=== PATIENT | male | born 1960 | race Two or more races ===

== ENCOUNTER 2017-12-25 20:45 | Emergency (ER) | payer OTHER ==
[~2017-12-25] VITALS: Ht 177.8 cm; Wt 96.2 kg
[~2017-12-25 20:45] MED LIST: CLONAZEPAM0.5 MG PO; DIOVAN HCT 320/1 TA1; HYZAAR 100-121 UDTAB PO; LEVSIN/SL0.125 MG SL; NORVASC5 MG PO; PROTONIX40 MG PO; TOPROL XL50 MG PO; TUSSIONEX PENNKI5 ML PO; VALSARTAN-HCTZ1 EAC3 PO; ZITHROMAX TRI-500 MG PO; ZITHROMAX500 MG PO; ZOLOFT50 MG PO
[2017-12-25] MEDS ORDERED: NORVASC5 MG (21:04)
== END 2017-12-25 22:30 | disposition home or self-care (01) ==
LOC: ER 20:45
DX: T78.1XXA Other adverse food reactions, not elsewhere classified, initial encounter (principal); R06.02 Shortness of breath

== ENCOUNTER 2018-03-07 09:56 | Inpatient (IN) | payer OTHER ==
[~2018-03-07] VITALS: Ht 177.8 cm; Wt 97.5 kg
[~2018-03-07 09:56] MED LIST changes: +NORVASC5 MG
[2018-03-14] MEDS ORDERED: AMOX-CLAV 875-1 EACH PO (10:55)
[2018-03-14] MEDS ORDERED: DOCUSATE SODIU100 MG PO (10:55)
[2018-03-14] MEDS ORDERED: GABAPENTIN800 MG PO (10:55)
[2018-03-14] MEDS ORDERED: PERCOCET 5-3251 EACH PO (10:56)
[2018-03-14] MEDS ORDERED: CLONAZEPAM1 MG PO (10:56)
== END 2018-03-15 12:35 | disposition home or self-care (01) | DRG 460 ==
LOC: O/R 03-14 05:37 → SURH 03-14 10:00 → PED 03-14 11:16 → SURH 03-14 15:45 → PED 03-15 12:35
PROVIDERS: Orthopaedic Surgery Orthopaedic Surgery of the Spine
PROC: 00NY0ZZ Release Lumbar Spinal Cord, Open Approach (ICD-10-PCS; 2018-03-14)
PROC: 0ST40ZZ Resection of Lumbosacral Disc, Open Approach (ICD-10-PCS; 2018-03-14)
PROC: 07DS3ZZ Extraction of Vertebral Bone Marrow, Percutaneous Approach (ICD-10-PCS; 2018-03-14)
PROC: 0SG30AJ Fusion of Lumbosacral Joint with Interbody Fusion Device, Posterior Approach, Anterior Column, Open Approach (ICD-10-PCS; principal; 2018-03-14 15:45)
DX: M47.27 Other spondylosis with radiculopathy, lumbosacral region (principal); M51.17 Intervertebral disc disorders with radiculopathy, lumbosacral region; I10 Essential (primary) hypertension

== ENCOUNTER 2018-04-13 12:58 | Emergency (ER) | payer OTHER ==
[~2018-04-13] VITALS: Ht 177.8 cm; Wt 96.6 kg
== END 2018-04-13 19:01 | disposition home or self-care (01) ==
LOC: ER 12:58
DX: K29.70 Gastritis, unspecified, without bleeding (principal); R11.11 Vomiting without nausea

== ENCOUNTER 2018-05-07 09:44 | Emergency (ER) | payer OTHER ==
[~2018-05-07] VITALS: Ht 165.1 cm; Wt 90.7 kg
[~2018-05-07 09:44] MED LIST changes: +AMOX-CLAV 875-1 EACH PO; +CLONAZEPAM1 MG PO; +DIAZEPAM2 MG; +DOCUSATE SODIU100 MG PO; +GABAPENTIN800 MG PO; +MORPHINE SULFAT30 MG; +PERCOCET 5-3251 EACH PO
== END 2018-05-07 16:18 | disposition home or self-care (01) ==
LOC: ER 09:44
DX: K21.9 Gastro-esophageal reflux disease without esophagitis (principal); F06.4 Anxiety disorder due to known physiological condition

== ENCOUNTER 2022-04-22 07:14 | Outpatient (CLI) | payer OTHER | END 2022-04-22 07:15 | disposition home or self-care (01) | LOC: NUCLEAR 07:14 | PROVIDERS: ATTEND Surgery | DX: K81.9 Cholecystitis, unspecified (principal); Z91.018 Allergy to other foods | CPT/HCPCS: 78227; A9537; J2805 ==

== ENCOUNTER 2022-08-08 12:11 | Emergency (ER) | payer OTHER ==
[~2022-08-08] VITALS: Ht 175.3 cm; Wt 89.8 kg
== END 2022-08-08 18:15 | disposition home or self-care (01) ==
LOC: ER 12:11
DX: N39.0 Urinary tract infection, site not specified (principal); E86.0 Dehydration; B34.9 Viral infection, unspecified; I10 Essential (primary) hypertension; Z20.822 Contact with and (suspected) exposure to COVID-19

== ENCOUNTER 2023-10-29 14:05 | Outpatient (CLI) | payer OTHER | END 2023-10-29 14:23 | disposition home or self-care (01) | LOC: TOM 14:05 | DX: R91.1 Solitary pulmonary nodule (principal) ==